=== PATIENT | male | born 1940 | race Caucasian/White ===

== ENCOUNTER 2016-10-15 14:07 | Emergency (ER) | payer OTHER ==
[~2016-10-15] VITALS: Ht 185.4 cm; Wt 106.1 kg
[2016-10-15 14:21] VITALS: BP 129/73
[2016-10-15 15:05] LABS: Basophils # (auto) 0 uL; Basophils % (auto) 0.2 % (0.0-2.0); Eosinophils # (auto) 0 uL; Eosinophils % (auto) 0.4 % (0.0-7.0); Hematocrit 42.1 % (41.0-53.0); Hemoglobin 13.9 g/dL (13.5-17.5); Lymphocytes # (auto) 1.3 uL; Lymphocytes % (auto) 14.3 % (10.0-50.0); Mean Corpuscular Hemoglobin 31.3 pg (28.0-32.0); Mean Corpuscular Volume 94.7 fL (80.0-100.0); Mean Platelet Volume 8.6 fL (7.4-10.4); Monocytes # (auto) 0.5 uL; Monocytes % (auto) 5.3 % (0.0-12.0); Neutrophils # (auto) 7.4 uL; Neutrophils % (auto) 79.8 % (37.0-80.0); Platelet Count (auto) 201 10^3/uL (140-450); Red Cell Distribution Width 15.9 % (11.6-16.0); White Blood Cell 9.2 10^3/uL (4.4-10.8)
[2016-10-15 15:21] LABS: Albumin 3.5 g/dL (3.4-5.0); Alkaline Phosphatase 103 U/L (45-117); Anion Gap 9 (5-15); Aspartate Aminotransferase 36 U/L (15-37); BUN/Creatinine Ratio 12.1; Bilirubin, Total 0.5 mg/dL (0.2-1.0); Blood Urea Nitrogen 13 mg/dL (7-18); Carbon Dioxide 29 mmol/L (21-32); Chloride 107 mmol/L (98-107); GFR African American 86 mL/min; GFR Non-African American 71 mL/min; Glucose 93 mg/dL (74-106); Magnesium 2.5 mg/dL (1.6-2.6); Potassium 4.5 mmol/L (3.5-5.1); Sodium 145 mmol/L (136-145)
== END 2016-10-15 16:46 | disposition left against medical advice (07) ==
LOC: EDUNIT# 14:07 → ER 14:21
DX: I49.5 Sick sinus syndrome (principal); Z53.21 Procedure and treatment not carried out due to patient leaving prior to being seen by health care provider
CPT/HCPCS: 36415; 80053; 83735; 84484; 85025

== ENCOUNTER 2019-02-09 22:43 | Emergency (ER) | payer OTHER ==
[~2019-02-09] VITALS: Ht 182.9 cm; Wt 81.6 kg
[2019-02-09] MEDS ORDERED: EPINEPHrine HCL 1 MG/10 ML SYRG IV ONE (22:48)
[2019-02-09] MEDS ORDERED: ATROPINE SULF 1 MG/10ml SYR IV ONE (22:48)
[2019-02-09] MEDS ORDERED: SODIUM BICARBONATE 8.4% INJ 50ML SYRINGE IV ONE (22:48)
[2019-02-09] MEDS ORDERED: EPINEPHrine HCL 1 MG/10 ML SYRG ONE (23:04)
== END 2019-02-10 03:14 | disposition expired ==
LOC: EDBD 22:43 → ER 22:47
DX: I46.9 Cardiac arrest, cause unspecified (principal); Z88.6 Allergy status to analgesic agent
CPT/HCPCS: 92950; 99285; J0171